=== PATIENT | female | born 2000 | race Caucasian/White ===

== ENCOUNTER 2021-10-10 10:44 | Inpatient (IN) ==
[2021-10-10] MEDS ORDERED: ALUMINUM/MAGNESIUM SUSP 30 ML UDC PO PRN (10:55)
[2021-10-10] MEDS ORDERED: SODIUM CHLORIDE 0.65% NA SOLN 45 ML (OCEAN) PRN (10:55)
[2021-10-10] MEDS ORDERED: hydrOXYzine HCl 25 MG TAB PO PRN (10:55)
[2021-10-10] MEDS ORDERED: ACETAMINOPHEN 325 MG TAB PO PRN (10:55)
[2021-10-10] MEDS ORDERED: BISMUTH SUBSALICYLATE LIQD 236 ML PO PRN (10:55)
[2021-10-10] MEDS ORDERED: MAGNESIUM HYDROXIDE SUSP 30 ML UDC PO PRN (10:55)
[2021-10-10] MEDS ORDERED: traZODone HCL 50 MG TAB PO PRN (16:50)
[2021-10-10] MEDS ORDERED: traZODone HCL 100 MG TAB PO PRN (16:50)
[2021-10-10] MEDS ORDERED: Patient's HEIGHT &/or WEIGHT Needed SCH (17:15)
[2021-10-10] MEDS: clonazePAM 0.25 MG TAB PO SCH (20:51)
[2021-10-10] MEDS: lamoTRIgine 100 MG TAB PO SCH (20:52)
[2021-10-10] MEDS: ziprasidone HCL 80 MG CAP PO SCH (20:52)
[2021-10-10] MEDS: hydrOXYzine HCl 25 MG TAB PO PRN (22:18)
[2021-10-11] MEDS ORDERED: ESCITALOPRAM OXALATE 10 MG TAB PO SCH (09:00)
[2021-10-11] MEDS: buPROPion XL 300 MG TABCR PO SCH (09:32)
[2021-10-11] MEDS: lamoTRIgine 100 MG TAB PO SCH ×2 (09:33→20:55)
[2021-10-11] MEDS: clonazePAM 0.25 MG TAB PO SCH ×2 (09:34→20:55)
--- NOTE | 2021-10-11 10:46 | History & Physical ---
Date of Service October 11, 2021 Impression / Recommendations Impression The patient is a 20 year old with a history of ADHD, depression, anxiety, mood disorder who was admitted for SI with plan. The patient is deemed unstable and requires psychiatric hospitalization for diagnostic clarification, safety and stabilization, medication management and development of further coping skills. Discussed medication treatment options in detail. Discussed risks, benefits and alternatives. Patient would like to continue with her current medications. (1) Unspecified mood [affective] disorder: Plan 10/11/21: The patient was admitted to the [facility]) on q15 min checks (behavioral with suicide precautions) for safety. The patient will participate in group, recreational, and milieu therapies and will be offered additional individual and family sessions as clinically appropriate. -Continue prior to admission medications. Inventory Assets Needs: safety and stabilization, medication adjustment, additional coping skills, increased outpatient services Suicide Risk Level Suicide Risk Level Comments: High-Moderate due to severe depression with SI with plan prior to admission but feels safe in the hospital, now denies SI, able to safety contract and agrees to let nursing/staff know should they develop plan, intent or feel unable to remain safe. Risk Factors Assessment : Yes Do You Have Access To A Gun?: No Mental Health Diagnoses: Yes Family History of Suicide: No Hopelessness: No Protective Factors Assessment Employed: No Stable Relationships: Yes Supportive Family: Yes Psychiatric History Identifying Data BRENDA GALEANA is a 20-year-old F who currently lives with her boyfriend, has a history of depression, ADHD, anxiety, and was admitted on 10/10/21 10:55 on a 201 voluntary commitment for SI with plan. Chief Complaint "I was feeling so misunderstood". History of Present Illness She presented to local ED for worsening SI with plans of cutting herself, crashing car or overdosing in context of feeling misunderstood and argument with boyfriend. Today reports improving mood due to being around peers like her. Feels her mood symptoms shift rapidly. Follows with outpatient psychiatrist. Feels her psychiatric medications are working. Signed 72 hour notice last night. Past Psychiatric History Current Psychiatric Diagnosis: MDD w/ SI. Outpatient Services: Dr. Chatman Previous Psych Admissions: denies Do You Have Access To A Gun?: No History of Previous Suicide Attempt: No Past Head Trauma/Neuro History History of Concussion/Seizure: No Home Medications Medication Instructions Recorded Confirmed Type bupropion HCl 300 mg 24 hr tablet, 300 mg PO QAM 10/10/21 10/10/21 History extended release (Wellbutrin XL) clonazepam 0.5 mg tablet (Klonopin) 0.25 mg PO BID 10/10/21 10/10/21 History escitalopram oxalate 10 mg tablet 7.5 mg PO DAILY 10/10/21 10/10/21 History (Lexapro) guanfacine 2 mg tablet,extended 2 mg PO PM 10/10/21 10/10/21 History release 24 hr lamotrigine 200 mg tablet 200 mg PO BID 10/10/21 10/10/21 History (Lamictal) trazodone 100 mg tablet 100 mg PO HS PRN insomnia 10/10/21 10/10/21 History trazodone 50 mg tablet 50 mg PO HS PRN insomina 10/10/21 10/10/21 History ziprasidone HCl 80 mg capsule 80 mg PO PM 10/10/21 10/10/21 History Family History Family History of: Doesn't Know Alcohol History Hx of Alcohol Use Over the Past 12 Months: Yes (Vodka, a few drinks, few times a month.) AUDIT Total Score: 5 Smoking Use Have You Smoked or Used Tobacco Products in the Last 30 Days: Yes tobacco type: e-cigarettes Smoking Status: Current some day smoker Substance History Hx of Prescription Med Misuse Over the Past 12 Months: No Hx of Over the Counter Med Misuse Over the Past 12 Months: No Hx of Inhalent Misuse Over the Past 12 Months: No Hx of Organic Substance Use Over the Past 12 Months: No Hx of Illegal Substances/Street Drug Use Over Past 12 Months: No Problems as a Result of Past Substance Use: None Identified Personal History Living Arrangements: Home Marital Status: Living w/ Signif. Other Beliefs That Will Affect Care: None Current Legal Problems: No Patient History Social History Smoking Status: Current some day smoker Preferred Language: Yi Communication Ability: Effective Drafter Castings Required: No Beliefs That Will Affect Care: None Feels Safe at Home: Yes Assistive Devices: None Review of Systems Review of Systems: All systems reviewed & are unremarkable except as noted in HPI & below Physical Exam Psychiatric: Orientation: alert and oriented x 3 Apperance: appropriately dressed and appropriately groomed Eye Contact: good eye contact Motor Behavior: no abnormal motor movements Speech: normal rate/rhythm/volume of speech Affect: euthymic affect Mood: + depressed mood Thought Process: goal directed thought process Thought Content: reality based without delusions Suicidal Thoughts: denies suicidal plan and denies suicidal intent; + reports suicidal thoughts (had SI with plan prior to admission) Homicidal Thoughts: denies homicidal thoughts Hallucinations: no auditory hallucinations and no visual hallucinations Cognition: recent memory grossly intact, remote memory grossly intact, attention grossly intact and language grossly intact Estimated Intelligence: consistent with education level Insight: + fair insight Judgement: + fair judgement Vital Signs (Past 24 Hours): Last Vital Signs Temp 36.5 C 10/11/21 06:41 Pulse 86 10/11/21 06:43 Resp 14 10/11/21 06:41 BP 95/62 L 10/11/21 06:43 Pulse Ox 98 10/10/21 16:49 O2 Del Method 10/10/21 16:49 Exam Statement: A physical exam was performed at outside ED by Dr. Zarco for the purposes of medical clearance. I accept that physical as correct and adequate for the purposes of the inpatient physical exam. Results & Data ([facility]) Current Inpatient Medications Current Inpatient Medications: Current Inpatient Medications Acetaminophen (Acetaminophen 325 Mg Tab) 650 mg PO Q4H PRN PRN Reason: Headache or Minor Fever Stop: 11/09/21 10:54 Al Hydrox/Mg Hydrox/Simethicone (Aluminum/Magnesium Susp 30 Ml Udc) 30 ml PO Q4H PRN PRN Reason: GI Upset Stop: 11/09/21 10:54 Bismuth Subsalicylate (Bismuth Subsalicylate Liqd 236 Ml) 15 ml PO PRN PRN PRN Reason: Loose Stool Stop: 11/09/21 10:54 Bupropion HCl (Bupropion Xl 300 Mg Tabcr) 300 mg PO QAM VALORIE Stop: 11/10/21 08:59 Last Admin: 10/11/21 09:32 Dose: 300 mg Clonazepam (Clonazepam 0.25 Mg Tab) 0.25 mg PO BID VALORIE Stop: 11/09/21 20:59 Last Admin: 10/11/21 09:34 Dose: 0.25 mg Escitalopram Oxalate (Escitalopram Oxalate 10 Mg Tab) 7.5 mg PO DAILY VALORIE Stop: 11/10/21 08:59 Last Admin: 10/11/21 09:32 Dose: 7.5 mg Guanfacine HCl (Guanfacine Hcl 1 Mg Ertab) 2 mg PO PM VALORIE Stop: 11/09/21 20:59 Last Admin: 10/10/21 20:51 Dose: 2 mg Hydroxyzine HCl (Hydroxyzine Hcl 25 Mg Tab) 50 mg PO HSZ PRN PRN Reason: Insomnia Stop: 11/09/21 10:54 Last Admin: 10/10/21 22:18 Dose: 50 mg Hydroxyzine HCl (Hydroxyzine Hcl 25 Mg Tab) 25 mg PO Q4H PRN PRN Reason: Anxiety Stop: 11/09/21 10:54 Lamotrigine (Lamotrigine 100 Mg Tab) 200 mg PO BID VALORIE Stop: 11/09/21 20:59 Last Admin: 10/11/21 09:33 Dose: 200 mg Magnesium Hydroxide (Magnesium Hydroxide Susp 30 Ml Udc) 30 ml PO DAILY PRN PRN Reason: Constipation Stop: 11/09/21 10:54 Sodium Chloride (Sodium Chloride 0.65% Na Soln 45 Ml ([place])) 1 - 2 sprays NA PRN PRN PRN Reason: Nasal Dryness/Congestion Stop: 11/09/21 10:54 Trazodone HCl (Trazodone Hcl 50 Mg Tab) 50 mg PO HS PRN PRN Reason: insomina Stop: 11/09/21 16:49 Trazodone HCl (Trazodone Hcl 100 Mg Tab) 100 mg PO HS PRN PRN Reason: insomnia Stop: 11/09/21 16:49 Ziprasidone (Ziprasidone Hcl 80 Mg Cap) 80 mg PO PM VALORIE Stop: 11/09/21 20:59 Last Admin: 10/10/21 20:52 Dose: 80 mg
[2021-10-11] MEDS ORDERED: Patient's ALLERGY Info needs ENTERED SCH (16:00)
[2021-10-11] MEDS: ziprasidone HCL 80 MG CAP PO SCH (20:55)
[2021-10-11] MEDS: hydrOXYzine HCl 25 MG TAB PO PRN (22:05)
--- NOTE | 2021-10-12 09:11 | Psychiatric Progress Note ---
Date of Service October 12, 2021 Impression / Recommendations Impression The patient is a 20 year old with a history of ADHD, depression, anxiety, mood disorder and ASD who was admitted for SI with plan. Diagnostically consistent with worsened mood in the context of multiple stressors including argument with her boyfriend, low self-esteem and being fired from a new job due to dizziness with significant component of impulsivity and emotionally reactivity likely from underlying ADHD and ASD. The patient is deemed unstable and requires psychiatric hospitalization for diagnostic clarification, safety and stabilization, medication management and development of further coping skills. 10/12/21: Improving mood, no SI today. Reviewed over the phone with her outpatient psychiatrist, Dr. Chatman, who noted she has historically struggled with dizziness/orthostatic hypotension with mood stabilizers/antipsychotic trials. Unfortunately this seems to be occurring again with Geodon and discussed option for Vraylar which he was considering as the next medication option if she had dizziness with Geodon given multiple other failed prior trials. Unfortunately Vraylar is not available on hospital formulary so discussed options for treatment with Brenda. She consents to tapering Geodon to discontinuation and then starting Vraylar in the outpatient setting. Dr. Chatman's office has samples available she could start on while they work on prior authorization approval. Reviewed side effects for Vraylar including but not limited to: movement (TD, NMS), cardiac (QTc prolongation), and metabolic (stroke, insulin resistance) and necessity for routine fasting lipid and glucose labwork and AIMS monitoring which she agrees with. (1) Unspecified mood [affective] disorder: Plan 10/12/21: Reduce Geodon to 40mg PM as taper to discontinuation with plan for eventual switch to Vraylar. Family meeting held. 10/11/21: The patient was admitted to the [facility] ([facility] unit) on q15 min checks (behavioral with suicide precautions) for safety. The patient will participate in group, recreational, and milieu therapies and will be offered additional individual and family sessions as clinically appropriate. -Continue prior to admission medications. -She signed 72 hour notice which expires in the evening on 10/13/21 Inventory Assets Needs: safety and stabilization, medication adjustment, additional coping skills, increased outpatient services Suicide Risk Level Suicide Risk Level: Moderate (q15 min suicide checks) Suicide Risk Level Comments: Moderate due to SI with plan prior to admission but now denying SI and feels safe in the hospital, able to safety contract and agrees to let nursing/staff know should they develop plan, intent or feel unable to remain safe. Risk Factors Assessment : Yes Do You Have Access To A Gun?: No Mental Health Diagnoses: Yes Family History of Suicide: No Hopelessness: No Protective Factors Assessment Employed: No Stable Relationships: Yes Supportive Family: Yes Interval History Identifying Information BRENDA GALEANA is a 20-year-old F who currently lives with her boyfriend, has a history of depression, ADHD, anxiety, ASD and was admitted on 10/10/21 10:55 on a 201 voluntary commitment for SI with plan. Chief Complaint "I'm learning ways to re-wire my negative thoughts". Review of Systems Sleep Information Total Hours of Sleep: 7 Meal Information Percent Meal Consumed - Breakfast: 100 Percent Meal Consumed - Lunch: 100 Percent Meal Consumed - Dinner: 75 Subjective Subjective Patient was seen & assessed and interval progress reviewed with treatment team nursing and social work. Today reports stable mood and denies SI. [address] Had family meeting with her mom. States she feels "a lot better" which she attributes to learning new coping skills. Reviewed that I had spoken with her outpatient provider Dr. Chatman and our mutal concerns about her periods of dizziness and low BP and possible contribution from her Geodon. She feels her dizziness at work may be due to anxiety but agrees that it could be from her medication. Physical Exam Psychiatric Orientation: alert and oriented x 3 Apperance: appropriately dressed and appropriately groomed Eye Contact: good eye contact Motor Behavior: no abnormal motor movements Speech: normal rate/rhythm/volume of speech Affect: euthymic affect Mood: + depressed mood and + anxious mood Thought Process: goal directed thought process and + concrete thought process Thought Content: reality based without delusions Suicidal Thoughts: denies suicidal thoughts, denies suicidal plan and denies suicidal intent Homicidal Thoughts: denies homicidal thoughts Hallucinations: no auditory hallucinations and no visual hallucinations Cognition: recent memory grossly intact, remote memory grossly intact, attention grossly intact and language grossly intact Estimated Intelligence: consistent with education level Insight: + fair insight Judgement: + fair judgement Vital Signs (Past 24 Hours) Last Vital Signs Temp 36.9 C 10/12/21 06:24 Pulse 81 10/12/21 06:27 Resp 14 10/12/21 06:24 BP 89/55 L 10/12/21 06:27 Pulse Ox 98 10/10/21 16:49 O2 Del Method 10/10/21 16:49 Results & Data ([facility]) Current Inpatient Medications Current Inpatient Medications: Current Inpatient Medications Acetaminophen (Acetaminophen 325 Mg Tab) 650 mg PO Q4H PRN PRN Reason: Headache or Minor Fever Stop: 11/09/21 10:54 Al Hydrox/Mg Hydrox/Simethicone (Aluminum/Magnesium Susp 30 Ml Udc) 30 ml PO Q4H PRN PRN Reason: GI Upset Stop: 11/09/21 10:54 Bismuth Subsalicylate (Bismuth Subsalicylate Liqd 236 Ml) 15 ml PO PRN PRN PRN Reason: Loose Stool Stop: 11/09/21 10:54 Bupropion HCl (Bupropion Xl 300 Mg Tabcr) 300 mg PO QAM VALORIE Stop: 11/10/21 08:59 Last Admin: 10/11/21 09:32 Dose: 300 mg Clonazepam (Clonazepam 0.25 Mg Tab) 0.25 mg PO BID VALORIE Stop: 11/09/21 20:59 Last Admin: 10/11/21 20:55 Dose: 0.25 mg Escitalopram Oxalate (Escitalopram Oxalate 10 Mg Tab) 10 mg PO DAILY VALORIE Stop: 11/11/21 08:59 Guanfacine HCl (Guanfacine Hcl 1 Mg Ertab) 2 mg PO PM VALORIE Stop: 11/09/21 20:59 Last Admin: 10/11/21 20:55 Dose: 2 mg Hydroxyzine HCl (Hydroxyzine Hcl 25 Mg Tab) 50 mg PO HSZ PRN PRN Reason: Insomnia Stop: 11/09/21 10:54 Last Admin: 10/11/21 22:05 Dose: 50 mg Hydroxyzine HCl (Hydroxyzine Hcl 25 Mg Tab) 25 mg PO Q4H PRN PRN Reason: Anxiety Stop: 11/09/21 10:54 Lamotrigine (Lamotrigine 100 Mg Tab) 200 mg PO BID VALORIE Stop: 11/09/21 20:59 Last Admin: 10/11/21 20:55 Dose: 200 mg Magnesium Hydroxide (Magnesium Hydroxide Susp 30 Ml Udc) 30 ml PO DAILY PRN PRN Reason: Constipation Stop: 11/09/21 10:54 Sodium Chloride (Sodium Chloride 0.65% Na Soln 45 Ml ([place])) 1 - 2 sprays NA PRN PRN PRN Reason: Nasal Dryness/Congestion Stop: 11/09/21 10:54 Trazodone HCl (Trazodone Hcl 50 Mg Tab) 50 mg PO HS PRN PRN Reason: insomina Stop: 11/09/21 16:49 Trazodone HCl (Trazodone Hcl 100 Mg Tab) 100 mg PO HS PRN PRN Reason: insomnia Stop: 11/09/21 16:49 Ziprasidone (Ziprasidone Hcl 80 Mg Cap) 80 mg PO PM VALORIE Stop: 11/09/21 20:59 Last Admin: 10/11/21 20:55 Dose: 80 mg Mental Health & Subst Abuse Tx Psychiatrist Name of Psychiatrist: Andreas Chatman Psychiatrist's Date of Appointment with Psychiatrist: 11/09/21 Time of Appointment with Psychiatrist: 10:45am Psychiatric Appointment Comment: zoom Post Discharge Appointments Primary Care Physician Name Of Family Doctor: [facility]
[2021-10-12] MEDS: buPROPion XL 300 MG TABCR PO SCH (09:42)
[2021-10-12] MEDS: clonazePAM 0.25 MG TAB PO SCH ×2 (09:42→21:13)
[2021-10-12] MEDS: ESCITALOPRAM OXALATE 10 MG TAB PO SCH (09:42)
[2021-10-12] MEDS: lamoTRIgine 100 MG TAB PO SCH ×2 (09:42→21:13)
[2021-10-13] MEDS: clonazePAM 0.25 MG TAB PO SCH (08:14)
[2021-10-13] MEDS: ESCITALOPRAM OXALATE 10 MG TAB PO SCH (08:14)
[2021-10-13] MEDS: lamoTRIgine 100 MG TAB PO SCH (08:14)
[2021-10-13] MEDS: buPROPion XL 300 MG TABCR PO SCH (08:14)
--- NOTE | 2021-10-13 08:50 | Discharge Summary ---
Date of Service October 13, 2021 History of Present Illness Per admission H&P: She presented to local ED for worsening SI with plans of cutting herself, crashing car or overdosing in context of feeling misunderstood and argument with boyfriend. Today reports improving mood due to being around peers like her. Fe els her mood symptoms shift rapidly. Follows with her outpatient psychiatrist Dr. Chatman. Feels her psychiatric medications are working. Signed 72 hour notice last night. Lin was better able to participate with an interview later in the afternoon so additional history is as below: On Saturday she was at an appointment and they asked her how she was doing and she started crying and told them she was "terrible" and endorsed SI with plans of overdosing or wrecking her car and was brought to the ED at [facility]. She notes "I was getting an ovarian scan and then I had a mental breakdown at the hospital". She identifies increased stress from losing her job on Saturday or Saturday after starting four days prior, which she attributes to feeling dizzy while at work and needing to sit down resulting in her being fired. She identifies other psychosocial stressors including arguing with her significant other a lot over the weekend and "not feeling good enough for my boyfriend" though she expands "I don't feel like I deserve him because he's great and I'm working on having more self-worth". Currently she is now continuing to deny SI and denies any depressive symptoms. She cannot identify any specific things that have changed except that she notes "I have always felt alone" but that since arriving to the inpatient unit she feels like other patients have similar struggles and "now I have a sense of belonging". She's very interested in group therapy or engaging with peer support services. She identifies photography as an interest of hers. She states she has been taking her medications "well" she just wishes her thoughts didn't race as much and that she didn't feel as lonely. She thinks that group therapy might help with the loneliness. She identifies that being home all day while her boyfriend is at work makes her worry that "he was just a figment of my imagine and I'm just alone in the universe". She signed a 72 hour notice last night which she states is due to feeling homesick but she notes "I feel like I can get the help I need in a few days or less" citing being around other patients and the groups as very helpful states she wanted to get some more ways to cope and then get going. She identifies reasons for living including her boyfriend, her aunt, her friends, photography, wanting to travel more and wanting to see a tornado in the future. Psychiatric ROS notable for denial of anxiety, denial of OCD, denial of eating disorder, she denies a history of aliyah but notes a history of insomnia "where I don't sleep". States her appetite and sleep have been stable though worsened in the few days after losing her job and arguing with her boyfriend but have improved since being admitted here last evening. Physical Exam Vital Signs (Past 24 Hours) Last Vital Signs Temp 36.8 C 10/13/21 06:52 Pulse 69 10/13/21 06:53 Resp 16 10/13/21 06:52 BP 91/49 L 10/13/21 06:53 Pulse Ox 98 10/10/21 16:49 O2 Del Method 10/10/21 16:49 See admission H&P and DOD summary. Principal Diagnosis Unspecified mood disorder, depressive episode Psychiatric Data See daily stay summary. In short, patient was engaged with the s ocial/therapeutic milieu of the unit, safety was maintained and the patient was cooperative with care. Medication changes included taper to discontinuation of Geodon due to dizziness and hypotension with plan to initiate Vraylar after discharge which will be titrated and monitored by her outpatient psychiatrist Dr. Chatman. Lexapro was also increased to 10mg daily as she felt she would be better able to take a full tablet instead of needing to cut a tablet to get to 7.5mg dose and she tolerated this well. She declined fasting glucose, and lipid panel labwork due to her dislike of needles and blood. She understands the importance of continuing to follow-up with Dr. Chatman for necessary routine monitoring for side effects of Vraylar including potential for metabolic and movement side effects. A family session was held and safety plan was completed prior to discharge. She actively participated in safety planning and in discussions about ways to seek support and recognizing warning signs and utilizing coping skills. Reviewed mobile apps that could be used for additional ways to have her safety plan and contacts easily available should thoughts of SI re-emerge in the future. Reviewed importance of seeking emergency care should SI intensify, worsen or should she feel unsafe in the future which she agrees to do. On the day of discharge she stated her mood was "excited and happy" and remained future- oriented including spending time with her boyfriend, celebrating their 9 month dating anniversary, playing with her cat and "my goal of trying to get my job back", and engaging in aftercare appointments for psychiatry and possible enrollment in group therapy. Initially she was given information/referral for virtual [employer] but social work then found out her insurance would not cover this so they provided her with additional information about potential group therapy/peer support resources near her in case she chooses to engage with this in the future as she found it beneficial/felt seen being around peers also coping with mental health challenges. Day of Discharge Assessment Today the patient voices readiness for discharge. They note improvement in mood and anxiety. They deny thoughts of harm to self or others. Thoughts are organized and they are clinically improved from admission. There is no evidence of psychosis. They improved in the hospital with support and medication adjustments. They agree to take medications as prescribed and keep follow-up appointments. At the time of the discharge they are deemed to be stable and appropriate for outpatient level of care. They are not deemed to be at imminent risk of harm to self or others. They are aware of emergency and crisis services. Knows to call 911 or go to nearest emergency care center if in a crisis which cannot be handled as an outpatient. Transition of Care Transition Of Care Record: was reviewed with the patient Advance Directives Advance Directives Information Provided: Yes Advance Directives: No Mental Health Advance Directive: No Advance Directives on File: No Living Will: No Power of Basin Cleaner: No Advance Directives Reason:: Declines as Mental Health Visit. Suicide Risk Level Suicide Risk Level Comments: Acute risk is low given improvement in mood and denial of SI, lack of access to lethal means, plan to avoid substance use, hopefulness. Chronic risk is moderate given psychiatric co-morbid diagnoses, periods of impulsivity, prior attempt, emotional reactivity, mood disorder but also with protective factors including family support, romantic relationship, goal of working again, good rapport with her outpatient psychiatrist and adherence with treatment. Counseled on ways to reduce acute and chronic risk including engaging with outpatient providers, using safety plan if needed, utilizing supports, taking medication, and using coping skills. Modifiable risk factors of SI and depression were addressed during hospitalization through development of new coping skills, family meeting, safety planning, and medication adjustments. Risk Factors Assessment : Yes Do You Have Access To A Gun?: No Mental Health Diagnoses: Yes Previous Attempt: Yes Family History of Suicide: No Previous Psychiatric Hospitalization: No Hopelessness: No Protective Factors Assessment Employed: No Stable Relationships: Yes Supportive Family: Yes Good Rapport with Provider: Yes Hospital Course (1) Unspecified mood [affective] disorder: (2) ADHD: (3) Autism spectrum disorder: (4) Depression: (5) Anxiety: Plan 10/13/21: Tolerating reduction on Geodon, no dizziness today, still hypotensive. Agrees to discontinuation of Geodon. Agrees with plan to start Vraylar after discharge. 10/12/21: Reduce Geodon to 40mg PM as taper to discontinuation with plan for eventual switch to Vraylar. Family meeting held. 10/11/21: The patient was admitted to the [facility]) on q15 min checks (behavioral with suicide precautions) for safety. The patient will participate in group, recreational, and milieu therapies and will be offered additional individual and family sessions as clinically appropriate. -Continue prior to admission medications. -She signed 72 hour notice which expires in the evening on 10/13/21 Mental Health & Subst Abuse Tx Psychiatrist Name of Psychiatrist: Andreas Chatman Psychiatrist's Date of Appointment with Psychiatrist: 11/09/21 Time of Appointment with Psychiatrist: 10:45am Psychiatric Appointment Comment: zoom Post Discharge Appointments Primary Care Physician Name Of Family Doctor: [facility] Discharge Plan Discharge Items Patient Disposition: Home - Self-Care Reason For Visit: MDD W/SI Discharge Diagnosis: Unspecified mood disorder, depressive episode Activity: Resume your previous activity Non-emergency contact: Primary Care Provider and Psychiatrist Call non-emergency contact if: you have any medication questions and your symptoms worsen Follow-up/Referrals: Arely Pop DO [Primary Care Provider] - Diet: Regular Addtl Attending Provider Instructions: Optional mobile apps we discussed: -Suicide safety plan -[facility] [employer] SPECIAL CARE INSTRUCTIONS: 1. Follow through with your scheduled aftercare appointments. If unable to keep an appointment, please call to reschedule. 2. Take your medication only as prescribed. Medication should not be changed or stopped without the approval of your doctor. In the event of worsening symptoms or concerns about side effects, contact your doctor immediately. 3. Utilize new healthy coping skills, anger management skills, and stress management skills learned during your hospitalization. Journal feelings and process them with a support person. Identify stressors or situations that may result in relapse, deterioration or inappropriate behaviors and develop a plan to deal with those issues. 4. If your coping skills are ineffective and you are in crisis, contact your outpatient providers for direction. If unable to reach your providers, please call the [facility] CRISIS LINE AT , go to the [facility] walk-in center at [address], [address], [place], or go to the closest Emergency Room. 5. Avoid alcohol and un-prescribed drugs. 6. You have been provided with the Mental Health Advance Directives Pamphlet for your review. 7. Your condition is stable for discharge to outpatient level of care, but recovery is an ongoing process. Ifthoughts to harm yourself or others return, follow the safety plan developed during your stay. Planning for a safe return home includes securing weapons. Our treatment team recommends weaponsbe removed from the home until your outpatient provider reassesses your progress. In rare cases where the items themselvescannot be removed, guns and ammunitionshould be secured separatelyand keys stored by a reliable personoutside of the home. If you were admitted on an involuntary commitment, the police or other legal authorities may be involved in this process. AFTERCARE APPOINTMENTS: * Please call your insurance company prior to your scheduled appointment to confirm your aftercare providers are covered. Take your insurance information to your appointments. WHO TO CALL AND WHEN: Medical Emergencies: For questions or emergencies related to your hospital stay, please contact the Inpatient Behavioral Health Unit at [phone]. A timber sizer is on-call 10/09 for the Behavioral Health Unit for emergencies At any time you feel your situation is an emergency, you may also call 911 immediately. Pending Studies at Discharge: No Stand-Alone Forms: My [facility] [employer] Medications and DC Order Prescriptions: New escitalopram oxalate 10 mg Tablet 10 mg PO DAILY 30 Days Qty: 30 0RF Continued guanfacine 2 mg Tablet Extended Release 24 Hr 2 mg PO HS clonazepam [Klonopin] 0.5 mg Tablet 0.25 - 0.5 mg PO BID PRN (Reason: Anxiety) lamotrigine [Lamictal] 200 mg Tablet 200 mg PO BID trazodone 50 mg Tablet 50 - 100 mg PO HS PRN (Reason: insomina) lamotrigine 100 mg tablet 100 mg PO BID melatonin 10 mg Tablet Extended Release 10 mg PO HS bupropion HCl [Wellbutrin XL] 300 mg Tablet Extended Release 24 Hr 300 mg PO QAM 30 Days Qty: 30 0RF Discontinued escitalopram oxalate [Lexapro] 10 mg Tablet 7.5 mg PO DAILY Rx Instructions: Take 10mg the week before and week of your menstrual cycle ziprasidone HCl 80 mg Capsule 80 mg PO PM Rx Instructions: give with food (meal/snack) Discharge Orders: Discharge Order (Routine); Ordered 10/13/21 Ordered By: Sabrina Sharpe/Other Patient Handouts: Journaling for Mental Health Admission Data Admit Date/Time: 10/10/21 10:55 Attending Provider: Sabrina Chapman Admit Provider: Sabrina Chapman Primary Care Provider: Arely Pop Other Interventions: Discharge Summary Assessment (RN) Last Done: 10/13/21 11:04 PSY Interdisciplinary Discharge Planning Last Done: 10/13/21 11:38 Coding Level of Care Code 05188 D/C day mgmt > 30 min Diagnoses Unspecified mood [affective] disorder F39 ADHD F90.9 Autism spectrum disorder F84.0 Depression F32.A Anxiety F41.9 Time Spent (min) 35
[2021-10-13] MEDS ORDERED: lamoTRIgine 100 MG TAB PO ONE (09:00)
[2021-10-13] MEDS ORDERED: lamoTRIgine 100 MG TAB PO SCH (21:00)
== END 2021-10-13 11:48 | disposition home or self-care (01) | DRG 881 ==
LOC: 3S 10:55
DX: Z79.899 Other long term (current) drug therapy; R42 Dizziness and giddiness; F17.290 Nicotine dependence, other tobacco product, uncomplicated; F32.A Depression, unspecified